=== PATIENT | female | born 1965 | race Caucasian/White ===

== ENCOUNTER 2019-06-12 10:27 | Emergency (ER) | payer OTHER ==
[~2019-06-12] VITALS: Ht 162.6 cm; Wt 49.4 kg
[2019-06-12 10:34] VITALS: Ht 162.6 cm; Wt 49.4 kg
[2019-06-12 11:24] LABS: BASOPHIL % 0.5 % (0-2); PLATELET COUNT 271 x10^3mcL (130-400); RED CELL DISTRIBUTION WIDTH 13.9 % (11.5-14.5)
[2019-06-12 11:41] LABS: CALCIUM 8.5 mg/dL (8.5-10.1); CARBON DIOXIDE 30.8 mmol/L (21-32); CHLORIDE SERUM 106 mmol/L (98-107); CREATININE SERUM 0.7 mg/dL (0.6-1.0); GFR1 > 60 mL/min; GLUCOSE SERUM 69 mg/dL (74-106); POTASSIUM SERUM 4.1 mmol/L (3.5-5.1); SODIUM SERUM 144 mmol/L (136-145)
[2019-06-12 11:45] LABS: ALBUMIN 3.5 g/dL (3.4-5.0); ALKALINE PHOSPHATASE 97 U/L (46-116); ALT/SGPT 41 U/L (14-59); AST/SGOT 42 U/L (15-37); BILIRUBIN TOTAL 0.3 mg/dL (0.20-1.00); TOTAL PROTEIN, SERUM 7.1 g/dL (6.4-8.2)
[2019-06-12 11:48] LABS: CHOLESTEROL 250 mg/dL (<200)
[2019-06-12 12:59] LABS: AMPHETAMINE QUAL UR POSITIVE (See below)
[2019-06-12 14:40] VITALS: BP 114/86
== END 2019-06-12 14:40 | disposition home or self-care (01) ==
LOC: ED 10:27
PROVIDERS: Specialist
DX: F19.10 Other psychoactive substance abuse, uncomplicated (principal); J45.909 Unspecified asthma, uncomplicated; E11.9 Type 2 diabetes mellitus without complications
CPT/HCPCS: 82962; G0480; J2060; J7030

== ENCOUNTER 2019-08-03 02:45 | Emergency (ER) | payer OTHER ==
[~2019-08-03] VITALS: Ht 162.6 cm; Wt 47.6 kg
[2019-08-03 02:50] VITALS: Ht 162.6 cm; Wt 47.6 kg
[2019-08-03 03:49] VITALS: BP 114/69
== END 2019-08-03 03:49 | disposition home or self-care (01) ==
LOC: ED 02:45
DX: S00.86XA Insect bite (nonvenomous) of other part of head, initial encounter (principal); J45.909 Unspecified asthma, uncomplicated; E11.9 Type 2 diabetes mellitus without complications; W57.XXXA Bitten or stung by nonvenomous insect and other nonvenomous arthropods, initial encounter; Y93.89 Activity, other specified; Y92.89 Other specified places as the place of occurrence of the external cause; Y99.8 Other external cause status

== ENCOUNTER 2019-08-09 16:55 | Emergency (ER) | payer OTHER | END 2019-08-09 17:32 | disposition left against medical advice (07) | LOC: ED 16:55 | DX: Z53.21 Procedure and treatment not carried out due to patient leaving prior to being seen by health care provider (principal) ==

== ENCOUNTER 2019-08-13 06:20 | Emergency (ER) | payer OTHER | END 2019-08-13 06:35 | disposition other institution (70) | LOC: ED 06:20 | DX: Z02.89 Encounter for other administrative examinations (principal) ==

== ENCOUNTER 2019-08-13 06:20 | Emergency (ER) | payer OTHER ==
[~2019-08-13] VITALS: Ht 167.6 cm; Wt 49.9 kg
[2019-08-13 06:33] VITALS: Ht 167.6 cm; Wt 49.9 kg
[2019-08-13 06:35] VITALS: BP 142/95
== END 2019-08-13 06:35 | disposition other institution (70) ==
LOC: ED 06:20
DX: F15.20 Other stimulant dependence, uncomplicated (principal); J45.909 Unspecified asthma, uncomplicated; E11.9 Type 2 diabetes mellitus without complications
CPT/HCPCS: 82962

== ENCOUNTER 2019-08-20 09:56 | Emergency (ER) | payer OTHER | END 2019-08-20 10:28 | disposition left against medical advice (07) | LOC: ED 09:56 | DX: Z53.21 Procedure and treatment not carried out due to patient leaving prior to being seen by health care provider (principal) ==

== ENCOUNTER 2019-11-16 17:34 | Emergency (ER) | payer OTHER ==
[~2019-11-16] VITALS: Ht 162.6 cm; Wt 47.6 kg
[2019-11-16 17:48] VITALS: BP 111/65; Ht 162.6 cm; Wt 47.6 kg
== END 2019-11-16 18:39 | disposition other institution (70) ==
LOC: ED 17:34
DX: Z02.89 Encounter for other administrative examinations (principal)

== ENCOUNTER 2019-11-23 09:17 | Emergency (ER) | payer OTHER | END 2019-11-23 10:34 | disposition left against medical advice (07) | LOC: ED 09:17 | DX: R11.0 Nausea (principal); R07.89 Other chest pain; J45.909 Unspecified asthma, uncomplicated; E11.9 Type 2 diabetes mellitus without complications ==